=== PATIENT | male | born 1955 | race Caucasian/White ===

== ENCOUNTER 2016-10-19 07:12 | Emergency (ER) | payer OTHER ==
[~2016-10-19] VITALS: Ht 193 cm; Wt 104.3 kg
[2016-10-19] MEDS ORDERED: CATAPRES ONE (07:37)
--- NOTE | 2016-10-19 07:40 | ER.PDOC ---
General Chief Complaint: Dyspnea/Respdistress Stated Complaint: SOB Time seen by MD: 07:39 Source: patient History of Present Illness Initial Comments sob chest tightness for 4 months non compliant htn recent usp Severity: mild Activities at Onset: none Prior Episodes/Possible Cause: no prior episodes Associated Symptoms: denies symptoms Prior symptoms/Treatment: Similar symptoms previous Allergies: Coded Allergies: No Known Allergies (Unverified , 10/20/13) Past Medical History Medical History: hypertension Surgical History: other Family History Significant Family History: no pertinent family hx Social History Smoking: cigarettes Drug Use: none Review of Systems Constitutional: denies fever EENTM: denies eye pain Respiratory: denies cough Cardiovascular: chest pain Gastrointestinal: denies abdominal pain Genitourinary: denies discharge Skin: denies rash All Other Systems: Reviewed and Negative Physical Exam General Appearance: Anxious HEENT: PERRL/EOMI, Normal ENT Inspection, TMs Normal, Pharynx Normal Neck: Non-Tender, Full Range of Motion, Supple, Normal Inspection Respiratory: chest non-tender, lungs clear, normal breath sounds, no respiratory distress, no accessory muscle use Cardiovascular: Normal Peripheral Pulses, Regular Rate, Rhythm, No Edema, No Gallop, No JVD, No Murmur Gastrointestinal: Normal Bowel Sounds, No Organomegaly, No Pulsatile Mass, Non Tender, Soft Extremities: Normal Range of Motion, Non-Tender, Normal Inspection, No Pedal Edema, No Calf Tenderness, Normal Capillary Refill Neurologic/Psychiatric: packing attendant II-XII NML as Tested, No Motor/Sensory Deficits, Alert, Normal Mood/Affect, Oriented x 3 Skin: Normal Color, Warm/Dry Lymphatic: No Adenopathy Results/Orders Results/Orders Laboratory Tests Test 10/19/16 07:46 White Blood Count 6.7 10^3/uL (4.5-11.0) Red Blood Count 4.89 10^6/uL (4.50-5.90) Hemoglobin 16.6 g/dL (13.9-16.3) Hematocrit 49.0 % (37.0-53.0) Mean Corpuscular Volume 100.2 fL (78-100) Mean Corpuscular Hemoglobin 33.9 pg (26-34) Mean Corpuscular Hemoglobin Concent 33.9 g/dL (33-37) Red Cell Distribution Width 16.7 % (11.5-14.5) Platelet Count 178 10^3/uL (150-400) Mean Platelet Volume 9.6 fL (7.8-11.0) Neutrophils (%) (Auto) 50.3 % (41.0-85.0) Lymphocytes (%) (Auto) 29.9 % (24.0-44.0) Monocytes (%) (Auto) 15.6 % (5.0-12.0) Neutrophils # (Auto) 3.4 10^3/uL (1.8-7.7) Lymphocytes # (Auto) 2.0 10^3/uL (1.0-4.8) Monocytes # (Auto) 1.1 10^3/uL (0.3-0.8) Absolute Immature Granulocyte (auto 0.01 10^3 u/L (0-2) Eosinophils % 3.4 % (0.0-5.0) Basophils % 0.7 % (0.0-0.2) Basophils # 0.1 10^3/uL (0.0-0.1) Eosinophil Count 0.2 10^3/uL (0.0-0.2) Sodium Level 143 mmol/L (132-145) Potassium Level 4.3 mmol/L (3.6-5.2) Chloride Level 107.0 mmol/L (96-109) Carbon Dioxide Level 22.8 mmol/L (20.0-32) Anion Gap 17.5 Blood Urea Nitrogen 7 mg/dL (7-18) Creatinine 0.85 mg/dL (0.59-1.40) Estimated GFR () 110.9 (>/=60) BUN/Creatinine Ratio 8.0 Glucose Level 103 mg/dL (70-110) Calcium Level 9.0 mg/dL (8.4-10.5) Total Bilirubin 0.2 mg/dL (0.2-1.0) Aspartate Amino Transf (AST/SGOT) 64 U/L (0-35) Alanine Aminotransferase (ALT/SGPT) 99 U/L (12-78) Alkaline Phosphatase 87 U/L (50-136) Total Creatine Kinase 75 U/L (39-308) Creatine Kinase MB 0.2 ng/mL (0.5-3.6) Troponin I < 0.02 ng/mL (0.00-0.05) Pro-B-Type Natriuretic Peptide 61 pg/mL (0-125) Total Protein 6.9 g/dL (6.4-8.2) Albumin 3.4 g/dL (3.4-5.0) Globulin 3.5 Percent Immature Gran (Cell Imm) 0.10 % (0.00-0.50) Administered Medications Medications (Trade) Dose Ordered Sig/Cristal Route PRN Reason Start Time Stop Time Status Last Admin Dose Admin Clonidine (Catapres) 0.2 mg STAT STAT PO 10/19/16 07:45 10/19/16 07:46 DC 10/19/16 07:47 Progress Progress cardiac neg cxr neg ekg neg EKG/XRAY/CT/US EKG: NSR EKG Comments: [address] t changes XRAY: chest XRAY Comments: no infiltrates Departure Time of Disposition: 08:36 Disposition: 01 HOME, SELF-CARE Impression: Primary Impression: Hypertension Condition: Stable Referrals: PCP,UNKNOWN (PCP) PRIMARY CARE PROVIDER Additional Instructions: f/u with primary md LEWIS Renteria Dr., MD Oct 19, 2016 07:40
[2016-10-19] MEDS: CATAPRES PO STA (07:47)
[2016-10-19 07:55] LABS: BASOPHIL # 0.1 10^3/uL (0.0-0.1); BASOPHIL % 0.7 % (0.0-0.2); EOSINOPHIL # 0.2 10^3/uL (0.0-0.2); EOSINOPHIL % 3.4 % (0.0-5.0); HEMOGLOBIN 16.6 g/dL (13.9-16.3); LYMPHOCYTES % 29.9 % (24.0-44.0); MEAN CELL HGB 33.9 pg (26-34); MEAN CELL HGB CONCENTRATION 33.9 g/dL (33-37); MEAN CORP VOLUME 100.2 fL (78-100); MEAN PLATELET VOLUME 9.6 fL (7.8-11.0); MONOCYTES # 1.1 10^3/uL (0.3-0.8); MONOCYTES % 15.6 % (5.0-12.0); NEUTROPHIL # 3.4 10^3/uL (1.8-7.7); NEUTROPHILS % 50.3 % (41.0-85.0); RED CELL DISTRIBUTION WIDTH 16.7 % (11.5-14.5); WHITE BLOOD CELL 6.7 10^3/uL (4.5-11.0)
--- NOTE | 2016-10-19 08:14 | DIREP ---
This report includes an Addendum and supersedes previous reports for this exam. PROCEDURE:CHEST 2 VIEWS COMPARISON:None. INDICATIONS:sob FINDINGS: LUNGS/PLEURA:PA view of the chest. Lateral view has not been provided. Minimal atelectasis or scarring in the right lung base. No pneumonia, CHF or effusions are seen. VASCULATURE:Normal. Unremarkable pulmonary vasculature. CARDIAC:Normal. No cardiac silhouette abnormality or cardiomegaly. MEDIASTINUM:Normal. No visible mass or adenopathy. BONES:Normal. No fracture or visible bony lesion. OTHER:Negative. CONCLUSION:Shallow expansion of the lungs, right lower lobe atelectasis or scarring. No pneumonia, CHF or effusions are seen. Dictated by: Evangelist Lucero MD on 10/19/2016 at 08:12 AM NDUM: The lateral view has now been provided. No effusions are seen on the lateral view. The minimal atelectasis in the right lung base is persistent. - RM Dictated by: Evangelist Lucero MD on 10/19/2016 at 11:59 AM
[2016-10-19 08:28] LABS: ALANINE AMINOTRANSFERASE 99 U/L (12-78); ALKALINE PHOSPHATASE 87 U/L (50-136); ASPARTATE AMINO TRANSFERASE 64 U/L (0-35); CARBON DIOXIDE 22.8 mmol/L (20.0-32); GLUCOSE 103 mg/dL (70-110)
[2016-10-19 08:43] VITALS: BP 159/102
== END 2016-10-19 08:40 | disposition home or self-care (01) ==
LOC: ER 07:12
DX: I10 Essential (primary) hypertension (principal); R07.89 Other chest pain; F17.210 Nicotine dependence, cigarettes, uncomplicated
CPT/HCPCS: 36415; 71020; 80053; 82550; 82553; 83880; 84484; 85025; 93005; 99285